=== PATIENT | female | born 1980 | race African-American/Black ===

== ENCOUNTER 2018-03-27 10:58 | Emergency (ER) | payer OTHER ==
[2018-03-27] MEDS ORDERED: Famotidine 20 MG TAB ONE (12:22)
[2018-03-27] MEDS ORDERED: Dexamethasone 10 MG/ML VIAL ONE (12:22)
[2018-03-27] MEDS ORDERED: hydrOXYzine 25 MG TAB ONE (12:22)
== END 2018-03-27 13:22 | disposition left against medical advice (07) ==
LOC: ERS 10:58
DX: T78.40XA Allergy, unspecified, initial encounter (principal); F17.210 Nicotine dependence, cigarettes, uncomplicated; Z79.899 Other long term (current) drug therapy
CPT/HCPCS: 99283; J1100

== ENCOUNTER 2018-08-31 10:21 | Emergency (ER) | payer OTHER | END 2018-08-31 11:10 | disposition home or self-care (01) | LOC: ERS 10:21 | DX: L30.9 Dermatitis, unspecified (principal); R10.9 Unspecified abdominal pain; R51 Headache; R19.7 Diarrhea, unspecified; F17.210 Nicotine dependence, cigarettes, uncomplicated | CPT/HCPCS: 99283 ==

== ENCOUNTER 2020-12-02 19:15 | Emergency (ER) | payer OTHER ==
[2020-12-02] MEDS ORDERED: Ketorolac Tromethamine 30 MG/ML VIAL ONE (19:47)
[2020-12-02] MEDS ORDERED: Metoclopramide HCl 10 MG/2 ML VIAL ONE (19:47)
[2020-12-02] MEDS ORDERED: diphenhydrAMINE 12.5 MG/5 ML UDCUP ONE (19:47)
[2020-12-02] MEDS ORDERED: diphenhydrAMINE 50 MG/ML VIAL ONE (19:48)
--- NOTE | 2020-12-02 20:17 | CT ---
CT HEAD WITHOUT CONTRAST: 12/02/20 HISTORY: Headache. COMPARISON: Comparison made to head CT of 07/11/20. Ventricles have normal size and position. There is no evidence of intracranial mass or hemorrhage. No edema or infarct. There is an empty sella which was present on the prior exam. The visualized sinuse s are well aerated. Mastoids are clear. IMPRESSION: No acute process. Incidentally again noted is an empty sella. POS: [facility]
== END 2020-12-02 21:20 | disposition home or self-care (01) ==
LOC: ERS 19:15
DX: R51.9 Headache, unspecified (principal); D64.9 Anemia, unspecified; I10 Essential (primary) hypertension; F17.210 Nicotine dependence, cigarettes, uncomplicated
CPT/HCPCS: 70450; 96365; 96375; J1200; J1885; J2765; Q0163